=== PATIENT | female | born 1985 | race African-American/Black ===

== ENCOUNTER 2016-04-15 17:18 | Inpatient (IN) | payer OTHER ==
[~2016-04-15] VITALS: Ht 167.6 cm; Wt 96.3 kg
[2016-04-15 18:03] LABS: HEMATOCRIT 36.8 % (36.0-46.0); MCH 28.6 PG (29.0-34.0); MCHC 33.2 G/DL (30.0-36.0); MCV 86.4 FL (83-99); MEAN PLAT.VOLUME 11.6 uM^3 (9.5-12.4); PLATELET COUNT 230 K/uL (156-360); RBC DIS.WIDTH-CV 14.2 % (11.8-14.6); RBC DIS.WIDTH-SD 43.8 % (39-53); RED BLOOD COUNT 4.26 M/uL (3.80-5.20); WHITE BLOOD COUNT 10.5 K/uL (4.1-10.2)
[2016-04-15 18:15] LABS: CHLORIDE 105 mEq/L (99-109); POTASSIUM 4.2 mEq/L (3.7-5.4); SODIUM 137 mEq/L (136-147)
[2016-04-15 18:18] LABS: GLUCOSE 149 mg/dL (70-99)
[2016-04-15 18:19] LABS: ANION GAP 9 MEQ/L (2-14)
[2016-04-15 18:20] LABS: TOTAL BILIRUBIN 0.5 mg/dL (0.0-1.0)
[2016-04-15 18:21] LABS: ALKALINE PHOSPHATASE 111 IU/L (3-129); GFR ESTIMATE (CALCULATED) > 59 mL/min/
[2016-04-15 18:22] LABS: UREA NITROGEN (BUN) 13 mg/dL (9-23)
[2016-04-15 18:30] LABS: QUANTITATIVE HCG 619.7 MIU/ML
[2016-04-15] MEDS ORDERED: ZOFRAN ODT4 MG PO (20:31)
[2016-04-15] MEDS ORDERED: PERCOCET 5/31 TABLET PO (20:31)
[2016-04-15 20:55] LABS: LIPASE 37 U/L (1.0-51.0)
[2016-04-15 21:38] LABS: ADD MIUA? YES; BILIRUBIN NEGATIVE; BLOOD MODERATE; GLUCOSE (STRIP) NEGATIVE; KETONES NEGATIVE; LEUKOCYTES NEGATIVE; NITRITE NEGATIVE; PROTEIN (STRIP) 100; SPECIFIC GRAVITY 1.024 (1.000-1.030)
[2016-04-15 21:39] LABS: COLOR DK YELLOW ((YELLOW)); RED BLOOD CELLS 15-20 /HPF (0-5); WHITE BLOOD CELLS 0-5 /HPF (0-5)
[2016-04-15 21:40] LABS: AMORPHOUS URATES CRYSTALS FEW; BACTERIA RARE /HPF; CASTS NONE SEEN /LPF; CRYSTALS PRESENT; EPITHELIAL CELLS 1+ /HPF; MUCUS TRACE /LPF; UCUL ADDED? NO
[2016-04-16 04:47] VITALS: BP 97/56
[2016-04-16 07:52] LABS: ALKALINE PHOSPHATASE 104 IU/L (3-129); ANION GAP 9 MEQ/L (2-14); CHLORIDE 106 MEQ/L (99-109); DIRECT BILIRUBIN 0.1 mg/dL (0.0-0.3); GFR ESTIMATE (CALCULATED) > 59 mL/min/; SAMPLE HEMOLYSIS CHECK 0; SAMPLE ICTERIC CHECK 0; SAMPLE LIPEMIA CHECK 0; SODIUM 139 MEQ/L (136-147); TOTAL BILIRUBIN 0.4 MG/DL (0.0-1.0); UREA NITROGEN (BUN) 9 mg/dL (9-23)
[2016-04-16 07:58] LABS: GLUCOSE 80 mg/dL (70-99)
[2016-04-16 09:07] LABS: HEMATOCRIT 33.3 % (36.0-46.0); MCH 28.6 PG (29.0-34.0); MCV 86.7 FL (83-99); MEAN PLAT.VOLUME 12.3 uM^3 (9.5-12.4); PLATELET COUNT 211 K/uL (156-360); RBC DIS.WIDTH-CV 14.8 % (11.8-14.6); RBC DIS.WIDTH-SD 47.5 % (39-53); RED BLOOD COUNT 3.84 M/uL (3.80-5.20); WHITE BLOOD COUNT 8.4 K/uL (4.1-10.2)
[2016-04-16 09:43] VITALS: BP 116/60
[2016-04-16 12:05] VITALS: BP 127/83; BP 187/79
[2016-04-16 16:41] VITALS: BP 125/75
[2016-04-16 20:00] VITALS: BP 120/76
[2016-04-17] VITALS: BP 110/51
[2016-04-17 07:33] LABS: ALKALINE PHOSPHATASE 95 IU/L (3-129); AMYLASE 55 IU/L (1-118); ANION GAP 7 MEQ/L (2-14); CHLORIDE 110 MEQ/L (99-109); GFR ESTIMATE (CALCULATED) > 59 mL/min/; GLUCOSE 74 mg/dL (70-99); LIPASE 26 U/L (1.0-51.0); POTASSIUM 3.6 MEQ/L (3.7-5.4); SAMPLE HEMOLYSIS CHECK 0; SAMPLE ICTERIC CHECK 0; SAMPLE LIPEMIA CHECK 0; SODIUM 139 MEQ/L (136-147); TOTAL BILIRUBIN 0.4 MG/DL (0.0-1.0); UREA NITROGEN (BUN) 7 mg/dL (9-23)
[2016-04-17 07:37] LABS: HEMATOCRIT 32.8 % (36.0-46.0); MCH 28.8 PG (29.0-34.0); MCHC 32.6 G/DL (30.0-36.0); MCV 88.4 FL (83-99); PLATELET COUNT 174 K/uL (156-360); RBC DIS.WIDTH-CV 14.7 % (11.8-14.6); RBC DIS.WIDTH-SD 47.7 % (39-53); RED BLOOD COUNT 3.71 M/uL (3.80-5.20)
[2016-04-17 07:42] LABS: WHITE BLOOD COUNT 4.4 K/uL (4.1-10.2)
[2016-04-17 08:00] VITALS: BP 144/58
[2016-04-17 11:34] LABS: HBSG INDEX 0.17
[2016-04-17 11:35] LABS: ANTI-HEPATITIS A VIRUS (IGM) Nonreactive
[2016-04-17 11:36] LABS: ANTI-HEPATITIS B CORE (IGM) Nonreactive; HBC IgM INDEX 0.07
== END 2016-04-17 16:45 | disposition home or self-care (01) | DRG 446 ==
LOC: EME 17:18 → EDOF 23:46 → 5WEST 23:46 → 2EAST 04-16 16:20
PROVIDERS: Family Medicine; Internal Medicine Gastroenterology; Physician Assistant; Surgery
DX: K80.66 Calculus of gallbladder and bile duct with acute and chronic cholecystitis without obstruction (principal); Z33.1 Pregnant state, incidental; E87.6 Hypokalemia; R31.9 Hematuria, unspecified
CPT/HCPCS: 76705; 80048; 80048 91; 80053; 80074; 80076; 81003; 82150; 83690; 84702; 85027; 99281; 99285; G0378; J1170; J2405; J2765; J7030

== ENCOUNTER 2017-01-04 05:20 | Emergency (ER) | payer OTHER ==
[~2017-01-04] VITALS: Ht 167.6 cm; Wt 103.9 kg
[~2017-01-04 05:20] MED LIST: PERCOCET 5/31 TABLET PO; ZOFRAN ODT4 MG PO
[2017-01-04 06:09] LABS: ADD MIUA? YES; BILIRUBIN NEGATIVE; BLOOD LARGE; COLOR YELLOW ((YELLOW)); GLUCOSE (STRIP) NEGATIVE; KETONES NEGATIVE; LEUKOCYTES SMALL; NITRITE NEGATIVE; PROTEIN (STRIP) NEGATIVE; SPECIFIC GRAVITY 1.006 (1.000-1.030); UROBILINOGEN 0.2 MG/DL (0.2-1.0)
[2017-01-04 06:15] LABS: MCH 26.7 PG (29.0-34.0); MCHC 31.5 G/DL (30.0-36.0); MCV 84.9 FL (83-99); MEAN PLAT.VOLUME 11.1 uM^3 (9.5-12.4); PLATELET COUNT 185 K/uL (156-360); RBC DIS.WIDTH-CV 14.8 % (11.8-14.6); RBC DIS.WIDTH-SD 45.8 % (39-53); RED BLOOD COUNT 3.18 M/uL (3.80-5.20); WHITE BLOOD COUNT 4.8 K/uL (4.1-10.2)
[2017-01-04 06:29] LABS: CHLORIDE 105 mEq/L (99-109); POTASSIUM 4.1 mEq/L (3.7-5.4); SODIUM 137 mEq/L (136-147)
[2017-01-04 06:31] LABS: GLUCOSE 94 mg/dL (70-99)
[2017-01-04 06:33] LABS: ANION GAP 8 MEQ/L (2-14); TOTAL BILIRUBIN 0.7 mg/dL (0.0-1.0)
[2017-01-04 06:35] LABS: ALKALINE PHOSPHATASE 233 IU/L (3-129); GFR ESTIMATE (CALCULATED) > 59 mL/min/
[2017-01-04 06:36] LABS: UREA NITROGEN (BUN) 10 mg/dL (9-23)
[2017-01-04 06:38] LABS: LIPASE 42 U/L (1.0-51.0)
[2017-01-04 06:43] LABS: EPITHELIAL CELLS RARE /HPF; RED BLOOD CELLS 0-5 /HPF (0-5); WHITE BLOOD CELLS 0-5 /HPF (0-5)
[2017-01-04 06:44] LABS: BACTERIA 1+ /HPF; CASTS NONE SEEN /LPF; CRYSTALS NONE SEEN; MUCUS NONE SEEN /LPF; UCUL ADDED? NO
[2017-01-04 06:44] LABS: QUANTITATIVE HCG 664.4 MIU/ML
[2017-01-04] MEDS ORDERED: PERCOCET 5/31 TABLET PO (08:21)
[2017-01-04] MEDS ORDERED: ZOFRAN ODT4 MG PO (08:21)
[2017-01-04 08:36] VITALS: BP 129/73
== END 2017-01-04 08:39 | disposition home or self-care (01) ==
LOC: EME 05:20
DX: K80.20 Calculus of gallbladder without cholecystitis without obstruction (principal)
CPT/HCPCS: 76705; 80053; 81003; 83690; 84702; 85027; 99281; 99285; J2405; J3010; J7030